=== PATIENT | male | born 1975 | race Caucasian/White ===

== ENCOUNTER → 2022-04-08 12:50 | Outpatient (BNVA) | payer SELFPAY | PROVIDERS: Family Provider Family Medicine; PCP Family Medicine; Visit Provider Family Medicine | DX: I63.9 Cerebral infarction, unspecified (principal); I10 Essential (primary) hypertension; E78.5 Hyperlipidemia, unspecified; F32.A Depression, unspecified | CPT/HCPCS: 80053; 80061; 84550 ==

== ENCOUNTER → 2022-05-27 11:17 | Outpatient (BNVA) | payer SELFPAY | PROVIDERS: Family Provider Family Medicine; PCP Family Medicine; Visit Provider Family Medicine | DX: R73.9 Hyperglycemia, unspecified (principal) | CPT/HCPCS: 83036 ==

== ENCOUNTER 2022-12-21 17:19 | Observation (INO) | payer MEDICAID, SELFPAY ==
[2022-12-21 17:27] VITALS: BP 133/97; PULSE 100; RESP 16; TEMP 36.8; O2SAT 96; BMI 34.0
[2022-12-21 18:34] LABS: Alanine Aminotransferase 39 U/L (0-41); Albumin Level 4.7 g/dL (3.5-5.2); Alkaline Phosphatase 92 U/L (40-130); Anion Gap 23.3 (5-19); Aspartate Amino Transferase 22 U/L (0-40); Blood Urea Nitrogen 20 mg/dL (6-20); Calcium 10.1 mg/dL (8.5-10.5); Carbon Dioxide 24 mmol/L (22-29); Chloride 81 mmol/L (98-107); Globulin 2.4 g/dL (1.3-4.6); Glomerular Filtration Rate 71.1 mL/min (90-130); Magnesium 2.3 mg/dL (1.7-2.3); Potassium 4.3 mmol/L (3.5-5.1); Sodium 124 mmol/L (136-145); Total Bilirubin 0.9 mg/dL (0.15-1.2); Total Protein 7.1 g/dL (6.6-8.7)
[2022-12-21 18:43] LABS: Osmolality Calculated 307 mOsm/kg (285-295)
[2022-12-21 18:54] LABS: Glucose 928 mg/dL (65-115)
[2022-12-21 19:15] LABS: Ketone (Acetest) Serum Negative (Negative)
--- NOTE | 2022-12-21 19:16 | W.ED.WEAKNES ---
HPI - Weakness General: Chief complaint: Weakness Stated complaint: weak, peeing alot, vision Time Seen by Provider: 12/21/22 19:05 Source: patient History of Present Illness: 47-year-old male with a history of hypertension. He presents with a 30 pound weight loss over the last couple of months. He has been urinating more frequently, thirsty all the time. He has been increasingly generally weak. He tried to mow his yard, and had to rest, and finally gave up. He felt like he needed to go to lay down after taking a shower today. He denies any fever. No vomiting or diarrhea. No history of diabetes. MD Complaint: generalized weakness Onset (ago): week(s) Duration: constant and progressively worsening Location: generalized Migration: none Severity: moderate Quality: other Relieving factors: none Associated symptoms: Reports decreased appetite and nausea; Denies chest pain, chills, diaphoresis, dysuria, fever(s), headache(s), short of breath, syncope or vomiting Review of Systems Const: Denies: fever(s), chills or diaphoresis ENMT: Denies: throat pain Card: Denies: chest pain or syncope Resp: Denies: dyspnea, productive cough or non-productive cough GI: Reports: nausea; Denies: abdominal pain or vomiting : Denies: dysuria Neuro: Denies: headache(s) Endo: Reports: polyuria, polydipsia and tired all the time Physical Exam Const: COMMON NORMALS: no acute distress GENERAL APPEARANCE: cooperative; not ill appearing and not frail appearing HENMT: COMMON NORMALS: normocephalic, atraumatic and Normal external nose present HEAD & SCALP: normocephalic and atraumatic FACE & SINUS: normal facial exam and face symmetric NOSE: Normal external nose present Eye: COMMON NORMALS: Equal, round and reactive pupils present and EOMs intact bilaterally PUPIL: Yes Equal, round and reactive pupils present Neck/C-Spine: GENERAL: Yes trachea midline Chest: CHEST: Yes Symmetrical chest wall rise Resp: COMMON NORMALS: normal respiratory effort, No retractions, No use of accessory muscles and clear to auscultation bilaterally AUSCULTATION: clear to auscultation bilaterally Cardio: COMMON NORMALS: regular rate and regular rhythm RATE: regular rate RHYTHM: regular rhythm GI: COMMON NORMALS: Normal to inspection, nondistended, normoactive bowel sounds present Extremity: COMMON NORMALS: no pedal edema Neuro: JAI COMA SCALE: document GCS findings Jai coma scale eye opening: Spontaneous Jai coma scale verbal response: Orientated [place] coma scale motor response: Obey commands Jai coma scale total score: 15 SENSORY EXAM: Yes extremities (intact) Psych: COMMON NORMALS: speech normal SPEECH: Yes normal speech Skin: COMMON NORMALS: no rashes or lesions noted GENERAL SKIN EXAM: no rashes or lesions noted Course Vital Signs: Vital signs: Vital Signs Temperature 98.3 F 12/21/22 17:27 Pulse Rate 100 12/21/22 17:27 Respiratory Rate 16 12/21/22 17:27 Blood Pressure 133/97 12/21/22 17:27 Pulse Oximetry 96 12/21/22 17:27 Oxygen Delivery Me thod Room Air 12/21/22 17:27 MDM - Weakness Medical Decision Making Patient with normal vital signs. Hemoglobin is 18. White blood cell count of 12. Blood sugar is 928, with pseudohyponatremia of 124. Bicarbonate level is 24. Venous blood gas shows a pH of 7.5. Urinalysis is negative save 1+ ketones and 4+ glucose. Serum ketones are negative. Lipase is 62. He was placed on insulin drip, 2 L bolus. Blood sugar is now 448 and following steadily. Since he is not acidotic, we will DC insulin drip when he transfers to the floor, for subcutaneous sliding scale insulin to help calculate insulin need for him. Spoke with hospitalist, will place in observation. Lab Data 12/21/22 19:09 12/21/22 18:06 Laboratory Results WBC 11.8 10^3/uL (4.0-10.0) H 12/21/22 19:09 Corrected WBC Cancelled 12/21/22 18:06 RBC 5.81 10^6/uL (4.1-5.3) H 12/21/22 19:09 Hgb 18.0 g/dL (11.7-16.6) H 12/21/22 19:09 Hct 48.4 % (42.0-52.0) 12/21/22 19:09 MCV 83.3 fl (80-94) 12/21/22 19:09 MCH 31.0 pg (28.0-34.0) 12/21/22 19:09 MCHC 37.2 g/dL (30.0-36.0) H 12/21/22 19:09 RDW 11.6 % (12.1-15.1) L 12/21/22 19:09 Plt Count 152 10^3/cmm (130-400) 12/21/22 19:09 MPV 9.0 fL (7.4-10.4) 12/21/22 19:09 Gran % Cancelled 12/21/22 18:06 Neut % (Auto) 71.3 % 12/21/22 19:09 Lymph % (Auto) 21.1 % 12/21/22 19:09 [place] % (Auto) 6.5 % 12/21/22 19:09 Eos % (Auto) 0.4 % 12/21/22 19:09 Baso % (Auto) 0.4 % 12/21/22 19:09 Neut # (Auto) 8.39 10^3/uL (1.8-7.7) H 12/21/22 19:09 Lymph # (Auto) 2.5 10^3/uL (0.8-4.8) 12/21/22 19:09 [place] # (Auto) 0.8 10^3/uL (0.2-0.9) 12/21/22 19:09 Eos # (Auto) 0.1 10^3/uL (0.0-0.8) 12/21/22 19:09 Baso # (Auto) 0.1 10^3/uL (0.0-0.1) 12/21/22 19:09 Absolute Gran (auto) Cancelled 12/21/22 18:06 Nucleated RBC % (auto) 0 % 12/21/22 19:09 Nucleated RBCs # 0.0 /100WBC 12/21/22 19:09 Specimen Type Venous 12/21/22 19:28 Sample Site Not specified 12/21/22 19:28 Star Test Pos 12/21/22 19:28 VBG pH 7.50 (7.32-7.42) H 12/21/22 19:28 VBG pCO2 34.8 mmHg (41-51) L 12/21/22 19:28 VBG pO2 60.6 mmHg (25-40) H 12/21/22 19:28 VBG HCO3 27.0 mmol/L (24-28) 12/21/22 19:28 VBG Base Excess 4.1 mmol/L (-3.0-3.0) H 12/21/22 19:28 VBG Hematocrit 56.1 % (42-52) H 12/21/22 19:28 O2 Delivery Device Room air 12/21/22 19:28 FiO2 21.0 % 12/21/22 19:28 Preparation Plant Repairer ID Arsalanro 12/21/22 19:28 Sodium 124 mmol/L (136-145) L 12/21/22 18:06 Potassium 4.3 mmol/L (3.5-5.1) 12/21/22 18:06 Chloride 81 mmol/L (98-107) L 12/21/22 18:06 Carbon Dioxide 24 mmol/L (22-29) 12/21/22 18:06 Anion Gap 23.3 (5-19) H 12/21/22 18:06 BUN 20 mg/dL (6-20) 12/21/22 18:06 Creatinine 1.1 mg/dL (0.7-1.2) 12/21/22 18:06 GFR Calculation 71.1 mL/min (90-130) L 12/21/22 18:06 Glucose 928 mg/dL (65-115) H* 12/21/22 18:06 POC Glucose > 600 mg/dL (70-110) H* 12/21/22 20:08 Calculated Osmolality 307 mOsm/kg (285-295) H 12/21/22 18:06 Calcium 10.1 mg/dL (8.5-10.5) 12/21/22 18:06 Magnesium 2.3 mg/dL (1.7-2.3) 12/21/22 18:06 Total Bilirubin 0.9 mg/dL (0.15-1.2) 12/21/22 18:06 AST 22 U/L (0-40) 12/21/22 18:06 ALT 39 U/L (0-41) 12/21/22 18:06 Alkaline Phosphatase 92 U/L (40-130) 12/21/22 18:06 Total Protein 7.1 g/dL (6.6-8.7) 12/21/22 18:06 Albumin 4.7 g/dL (3.5-5.2) 12/21/22 18:06 Globulin 2.4 g/dL (1.3-4.6) 12/21/22 18:06 Lipase 62 U/L (13-60) H 12/21/22 19:21 Urine Color Colorless (Yellow) 12/21/22 19:30 Urine Appearance Clear (CLEAR) 12/21/22 19:30 Urine pH 5 (5-7) 12/21/22 19:30 Ur Specific [place] 1.010 (1.005-1.030) 12/21/22 19:30 Urine Protein Neg (Negative) 12/21/22 19:30 Urine Glucose (UA) 4+ (Normal) H 12/21/22 19:30 Urine Ketones 1+ (Negative) H 12/21/22 19:30 Urine Blood Neg (Negative) 12/21/22 19:30 Urine Nitrate Negative (Negative) 12/21/22 19:30 Urine Bilirubin Neg (Negative) 12/21/22 19:30 Urine Urobilinogen Norm mg/dL (Negative) 12/21/22 19:30 Ur Leukocyte Esterase Negative (Negative) 12/21/22 19:30 Serum Ketones Negative (Negative) 12/21/22 18:06 Discharge Plan Discharge Patient Disposition: Placed in Observation Clinical Impression: Acute hyperglycemia Condition: Stable Prescriptions: No Action allopurinol 300 mg tablet See Rx Instructions .ROUTE .COMPLEX Qty: 90 3RF Dose Instruction: TAKE 1 TABLET BY MOUTH ONCE DAILY FOR GOUT Rx Instructions: TAKE 1 TABLET BY MOUTH ONCE DAILY FOR GOUT hydrochlorothiazide 25 mg tablet 25 mg PO DAILY Qty: 90 3RF Rx Instructions: Needs appt with physician simvastatin 80 mg tablet 80 mg PO DAILY Qty: 90 3RF Rx Instructions: Needs appt with physician hydrocodone-acetaminophen 5-325 mg tablet 1 tab PO BID PRN (Reason: pain/arthritis) 30 Days Qty: 30 0RF fluoxetine 20 mg capsule See Rx Instructions .ROUTE .COMPLEX Qty: 30 5RF Dose Instruction: Take 1 capsule by mouth once daily Rx Instructions: Take 1 capsule by mouth once daily lisinopril 30 mg tablet See Rx Instructions .ROUTE .COMPLEX Qty: 90 3RF Dose Instruction: TAKE 1 TABLET BY MOUTH ONCE DAILY . APPOINTMENT REQUIRED FOR FUTURE REFILLS Rx Instructions: TAKE 1 TABLET BY MOUTH ONCE DAILY . APPOINTMENT REQUIRED FOR FUTURE REFILLS Referrals: Raúl Hoffman DO [Primary Care Provider] - Coding Level of Care Code ED Natural Resource Manager for Colin Navarro
[2022-12-21 19:32] LABS: Base Excess VBG 4.1 mmol/L (-3.0-3.0); Blood Gas Allen Test Pos; Blood Gas Operator Identificat MONRO; Blood Gas Sample Site Not specified; Blood Gas Sample Type Venous; Oxygen Device ROOM AIR; PCO2 VBG 34.8 mmHg (41-51); PO2 VBG 60.6 mmHg (25-40); Venous Blood Gas Hematocrit 56.1 % (42-52)
[2022-12-21] MEDS: sodium chloride 0.9% 1,000 ML 999 ML IV ×2 (19:39→20:22)
[2022-12-21] MEDS: insulin regular-human 100 units/1 mL 16 UNIT IVP (19:39)
[2022-12-21 19:49] LABS: Add Urine Microscopic? NO; Charge for UA Resulting for Rev
[2022-12-21 19:52] LABS: Basophils # 0.1 10^3/uL (0.0-0.1); Basophils % 0.4 %; Eosinophils # 0.1 10^3/uL (0.0-0.8); Eosinophils % 0.4 %; Hematocrit 48.4 % (42.0-52.0); Lymphocytes # 2.5 10^3/uL (0.8-4.8); Lymphocytes % 21.1 %; Mean Corpuscular HGB Conc 37.2 g/dL (30.0-36.0); Mean Corpuscular Volume 83.3 fl (80-94); Monocytes # 0.8 10^3/uL (0.2-0.9); Monocytes % 6.5 %; Neutrophils # 8.39 10^3/uL (1.8-7.7); Neutrophils % 71.3 %; Nucleated Red Blood Cells % 0 %; Platelet Count 152 10^3/cmm (130-400); Red Blood Count 5.81 10^6/uL (4.1-5.3); Red Cell Distribution Width 11.6 % (12.1-15.1); White Blood Count 11.8 10^3/uL (4.0-10.0)
[2022-12-21 20:00] LABS: Bilirubin Urine Neg (Negative); Blood Urine Neg (Negative); Glucose Urine UA 4+ (Normal); Ketones Urine 1+ (Negative); Leukocyte Esterase Urine Negative (Negative); Nitrate Urine Negative (Negative); Protein Urine Neg (Negative); Urine Appearance Clear (CLEAR); Urine Color Colorless (Yellow); Urobilinogen Urine Norm (Negative); pH Urine 5 (5-7)
[2022-12-21 20:14] LABS: Lipase 62 U/L (13-60)
[2022-12-21] MEDS: insulin regular-human 250 UNIT in sodium chloride 0.9% 250 ML 26.26 UNIT IV (20:16)
[2022-12-21 20:17] LABS: Glucose Point of Care > 600 mg/dL (70-110)
--- NOTE | 2022-12-21 21:40 | PM.HP ---
Providers/Chief Complaint Primary Care Provider: Raúl Hoffman DO Chief Complaint: weak, peeing alot, vision History of Present Illness Rocco Flores is a 47 year old male with a past medical history significant for gout, hypertension, transient ischemic attack, and obesity who presents to the emergency department with generalized weakness x several months. Endorses associated unintentional weight loss, polyuria, polydipsia, and blurred vision. Denies a personal history of type 2 diabetes mellitus. Reports a family history of type 2 diabetes mellitus in his mother. In the ED, patient was found to have markedly elevated hyperglycemia with symptoms consistent with a newly diagnosed type 2 diabetes mellitus. Review of Systems Narrative: A complete review of systems was obtained and is negative except as stated in HPI. Medications/Allergies Home Medications Medication Instructions Recorded Confirmed Last Taken Type allopurinol 300 mg tablet See Rx Instructions .Route 04/09/22 Unknown Rx .COMPLEX #90 tabs hydrochlorothiazide 25 mg tablet 25 mg PO DAILY #90 tabs 04/12/22 Unknown Rx simvastatin 80 mg tablet 80 mg PO DAILY #90 tabs 04/12/22 Unknown Rx hydrocodone 5 mg-acetaminophen 325 1 tab PO BID PRN pain/arthritis 1 04/16/22 Unknown Rx mg tablet month #30 tabs fluoxetine 20 mg capsule See Rx Instructions .Route 08/12/22 Unknown Rx .COMPLEX #30 caps lisinopril 30 mg tablet See Rx Instructions .Route 08/12/22 Unknown Rx .COMPLEX #90 tabs Allergies Allergy/AdvReac Type Severity Reaction Status Date / Time No Known Allergies Allergy Verified 12/21/22 17:24 PFSH Acute PFSH: Medical History (Updated 12/22/22 @ 00:00 by Mariano Coles MD) Gout Hypertension Surgical History No pertinent past surgical history Family History Mother Diabetes Social History Smoking and tobacco status: never smoked Alcohol intake: current Substance/Drug Use: never Vitals/I&O/Wt Last Vital Signs Temp 98.3 F 12/21/22 17:27 Pulse 100 12/21/22 17:27 Resp 16 12/21/22 17:27 BP 133/97 12/21/22 17:27 Pulse Ox 96 12/21/22 17:27 O2 Del Method Room Air 12/21/22 17:27 12/21/22 12/21/22 12/21/22 06:59 14:59 22:59 Intake Total 715.95 / 715.95 Balance 715.95 / 715.95 Weight last 48 hrs Weight 104.326 kg Physical Exam Narrative: General: Patient is awake. Appears fatigued. Head: Normocephalic. Atraumatic. EOM intact. Dry mucous membranes. Neck: No JVD. Cardiovascular: RRR. No gallops. No murmurs. No peripheral edema. Lungs: Clear to auscultation, no use of accessory muscles, no crackles or wheezes. Skin: No jaundice. No rashes. Abdomen: Normal bowel sounds, abdomen soft and nontender. Genito Urinary: Genital exam not performed since complaints not related. Rectal: Rectal exam not performed since no symptoms indicated blood loss. Extremities: No cyanosis or clubbing. Musculoskeletal:No swollen or erythematous joints. Neurological: Moves all 4 extremities. No myoclonus. Data 12/21/22 19:09 12/21/22 18:06 A&P Assessment and plan (1) Hyperglycemia: Severe hyperglycemia consistent with newly diagnosed type 2 diabetes mellitus A1c ordered Started on insulin drip in ED Start Lantus SSI We will need additional diabetes education Will need supplies (2) Hypertension: Continue WILLARD inhibitor Continue HCTZ (3) Gout: Continue allopurinol (4) Depressed: Continue Prozac (5) Hyperlipemia: Continue statin Plan DVT prophylaxis: Low risk CODE STATUS: Full code Attestations Medical Necessity Statement*: Patient presents with severe symptomatic hyperglycemia consistent with newly diagnosed type 2 diabetes mellitus with expected hospitalization not to cross 2 midnights. Coding Level of Care Code Acute Code for g Fwd Diagnoses Hyperglycemia R73.9 Hypertension I10 Gout M10.9 Depressed F32.A Hyperlipemia E78.5
[2022-12-21 22:59] VITALS: BP 111/88; PULSE 82; RESP 16; O2SAT 94
[2022-12-21 22:59] LABS: Glucose Point of Care 448 mg/dL (70-110)
[2022-12-21 22:59] LABS: Glucose Point of Care 318 mg/dL (70-110)
--- NOTE | 2022-12-21 23:01 | PC.NURSE ---
Last blood sugar of [address] Stack. Insulin drip discontinued per doctor order.
[2022-12-22 00:02] VITALS: BP 134/86; PULSE 83; RESP 18; TEMP 36.8; O2SAT 92
[2022-12-22 00:44] LABS: Estmated Average Glucose 306; Hemoglobin A1C 12.3 % (4.0-6.0)
[2022-12-22] MEDS: insulin glargine 100 units/1 mL 10 UNIT SUBCUT (01:00)
[2022-12-22 04:00] VITALS: BP 127/77; PULSE 81; RESP 18; TEMP 36.8; O2SAT 95
[2022-12-22 04:05] LABS: Add RBC Morph Yes; Slide Review Slide Review Perform
[2022-12-22 04:09] LABS: Tear Drop Cells Trace
[2022-12-22 04:12] LABS: RBC Morph Comp No
[2022-12-22 06:42] LABS: Glucose Point of Care 366 mg/dL (70-110)
[2022-12-22 07:26] VITALS: BP 153/80; PULSE 78; RESP 15; TEMP 36.6; O2SAT 94
--- NOTE | 2022-12-22 09:08 | PC.PHAR ---
pt states he takes care of his own medications-ext shows fluoxetine 20mg daily last filled 10/20/22 30d/s pt states he hasnt taken in about 4 months but states he has about 3 months worth of fluoxetine built up-pt states he takes a daily aspirin pt states unsure if 81mg or 325mg states its just what you by otc-ext shows allopurinol 300mg daily filled 09/15/22 90d/s-fluoxetine 20mg daily filled 10/20/22 30d/s-hctz 25mg daily filled 09/15/22 90d/s-norco 5-325mg bid prn filled 04/21/22 30d/s-lisinopril 30mg daily filled 08/13/22 90d/s and zocor 80mg daily filled 09/23/22 90d/s-notes are made in the pharmacy comments
[2022-12-22 09:17] LABS: Basophils % 0.4 %; Eosinophils # 0.1 10^3/uL (0.0-0.8); Eosinophils % 1.2 %; Hematocrit 40.5 % (42.0-52.0); Hemoglobin 14.8 g/dL (11.7-16.6); Lymphocytes % 29.8 %; Mean Corpuscular HGB Conc 36.5 g/dL (30.0-36.0); Mean Corpuscular Hemoglobin 31.2 pg (28.0-34.0); Mean Corpuscular Volume 85.4 fl (80-94); Monocytes # 0.5 10^3/uL (0.2-0.9); Monocytes % 6.8 %; Neutrophils # 4.16 10^3/uL (1.8-7.7); Neutrophils % 61.5 %; Nucleated Red Blood Cells % 0 %; Platelet Count 100 10^3/cmm (130-400); Red Blood Count 4.74 10^6/uL (4.1-5.3); Red Cell Distribution Width 11.6 % (12.1-15.1); White Blood Count 6.8 10^3/uL (4.0-10.0)
[2022-12-22 09:44] LABS: Alanine Aminotransferase 31 U/L (0-41); Albumin Level 3.7 g/dL (3.5-5.2); Alkaline Phosphatase 70 U/L (40-130); Aspartate Amino Transferase 28 U/L (0-40); Blood Urea Nitrogen 19 mg/dL (6-20); Calcium 8.8 mg/dL (8.5-10.5); Carbon Dioxide 25 mmol/L (22-29); Chloride 94 mmol/L (98-107); Glomerular Filtration Rate 102.7 mL/min (90-130); Osmolality Calculated 303 mOsm/kg (285-295); Sodium 133 mmol/L (136-145); Total Bilirubin 0.4 mg/dL (0.15-1.2); Total Protein 5.7 g/dL (6.6-8.7)
[2022-12-22 09:55] LABS: Glucose 535 mg/dL (65-115)
[2022-12-22] MEDS: insulin lispro 100 unit/1 mL SUBCUT ×4 (10:36→21:20)
[2022-12-22] MEDS: insulin regular-human 15 UNIT in SYRINGE 1 EACH 10 UNIT IVP (10:36)
[2022-12-22] MEDS: allopurinol 300 mg Tablet PO (10:37)
[2022-12-22] MEDS: atorvastatin 40 mg Tablet PO (10:38)
[2022-12-22 11:06] LABS: Glucose Point of Care > 600 mg/dL (70-110)
--- NOTE | 2022-12-22 11:27 | P.PN_ITS ---
Subjective Subjective: Patient was given 15 units of IV insulin Given a bolus as well Blood sugar has been rising Anion gap closed Patient was educated on how to use use sliding scale moderate dose Lantus and use metformin Vitals/I&O/Wt Last Vital Signs Temp 97.8 F 12/22/22 07:26 Pulse 78 12/22/22 07:26 Resp 15 12/22/22 07:26 BP 153/80 12/22/22 07:26 Pulse Ox 94 12/22/22 07:26 O2 Del Method Room Air 12/22/22 07:26 12/21/22 12/22/22 12/22/22 22:59 06:59 14:59 Intake Total 747.024 / 646.062 5554 / 2227.024 360.15 / 360.15 Balance 747.024 / 733.143 4078 / 2227.024 360.15 / 360.15 Weight last 48 hrs Weight 104.326 kg Physical Exam Narrative: Awake and alert Euvolemic EOMI, PERRLA S1, S2 Morbidly obese GCS 15 Nonfocal neuro exam currently on room air Abdomen soft Data 12/22/22 08:43 12/22/22 08:43 A&P Assessment and plan (1) Gout: (2) Hypertension: (3) Hyperglycemia: (4) Acute hyperglycemia: (5) Depressed: (6) Hyperlipemia: Plan New diagnosis of diabetes Hemoglobin A1c is 12 Diabetic education done Spent a lot of time at the bedside Patient is still hyperglycemic Given IV fluid bolus and given IV regular insulin Anion gap is closed Patient was counseled for retinal exam and to see medical translator on annual basis Cessation of alcohol Continue aspirin Check cholesterol level Patient is still hyperglycemic he might not be able to go home today We will like to monitor his sugar and control it bring it below 180 Continue DVT prophylaxis Consistent carb diet Hypertensive: Adjust antihypertensive regimen Continue hydrochlorothiazide, lisinopril dose increased added amlodipine Moderate time spent at the bedside Patient had hemoglobin A1c of 6.6 in May and now it has worsened up to 12 is at the bedside he was counseled adverse I have showed them Google images to use moderate dose sliding scale and asked them to use [place] [employer] website Attestations Medical Necessity Statement*: 1 more day in the hospital is needed Diagnoses Gout M10.9 Hypertension I10 Hyperglycemia R73.9 Acute hyperglycemia R73.9 Depressed F32.A Hyperlipemia E78.5
[2022-12-22 11:36] VITALS: BP 148/88; PULSE 76; RESP 15; TEMP 36.7; O2SAT 95
[2022-12-22] MEDS: insulin glargine 100 units/1 mL 15 UNIT SUBCUT (11:57)
[2022-12-22] MEDS: lactated ringers 1,000 ML 999 ML IV ×2 (11:57→14:00)
[2022-12-22] MEDS: amlodipine 10 mg Tablet PO (11:57)
[2022-12-22 12:36] LABS: Glucose Point of Care 559 mg/dL (70-110)
[2022-12-22 15:38] VITALS: BP 163/90; PULSE 72; RESP 15; TEMP 36.6; O2SAT 95
[2022-12-22 16:56] LABS: Glucose Point of Care 288 mg/dL (70-110)
[2022-12-22 20:00] VITALS: BP 156/84; PULSE 78; RESP 18; TEMP 36.5; O2SAT 93
[2022-12-22 20:44] LABS: Glucose Point of Care 313 mg/dL (70-110)
[2022-12-22] MEDS: insulin glargine 100 units/1 mL 30 UNIT SUBCUT (21:21)
[2022-12-22 23:22] LABS: Glucose Point of Care 194 mg/dL (70-110)
[2022-12-23] VITALS: BP 148/88; PULSE 68; RESP 17; TEMP 37.1; O2SAT 97
[2022-12-23 03:08] LABS: Glucose Point of Care 174 mg/dL (70-110)
[2022-12-23 04:00] VITALS: BP 145/82; PULSE 67; RESP 18; TEMP 36.4; O2SAT 97
[2022-12-23 05:23] LABS: Anion Gap 14.3 (5-19); Blood Urea Nitrogen 13 mg/dL (6-20); Calcium 8.7 mg/dL (8.5-10.5); Carbon Dioxide 25 mmol/L (22-29); Chloride 104 mmol/L (98-107); Creatinine Clr Calc Pharmacy 151.9382; Glomerular Filtration Rate 119.9 mL/min (90-130); Glucose 223 mg/dL (65-115); Osmolality Calculated 297 mOsm/kg (285-295); Potassium 3.3 mmol/L (3.5-5.1); Sodium 140 mmol/L (136-145)
[2022-12-23 06:50] LABS: Glucose Point of Care 274 mg/dL (70-110)
[2022-12-23 07:26] VITALS: BP 151/95; PULSE 78; RESP 16; TEMP 36.4; O2SAT 95
[2022-12-23] MEDS: insulin lispro 100 unit/1 mL SUBCUT ×2 (08:25→13:02)
[2022-12-23] MEDS: amlodipine 10 mg Tablet PO (08:26)
[2022-12-23] MEDS: lisinopril 20 mg Tablet 40 MG PO (08:26)
[2022-12-23] MEDS: atorvastatin 40 mg Tablet PO (08:26)
[2022-12-23] MEDS: allopurinol 300 mg Tablet PO (08:28)
--- NOTE | 2022-12-23 10:05 | P.DS_ITS ---
Discharge Providers Date of Admission: 12/21/22 22:50 Date of Discharge: December 23, 2022 Attending Provider at Admission: Mariano Coles MD Attending Provider at Discharge: Elen Ny MD Primary Care Provider: Raúl Hoffman DO Diagnoses at Discharge Discharge Diagnosis (1) Gout: Status: Acute (2) Hypertension: Status: Acute (3) Hyperglycemia: Status: Acute (4) Acute hyperglycemia: Status: Acute (5) Depressed: Status: Acute (6) Hyperlipemia: Status: Acute Reason for Visit Reason for Visit: weak, peeing alot, vision Hospital Course Hospital Course 47-year-old male who was admitted for polydipsia polyuria and fatigue unint entional weight loss, patient was diagnosed with new onset diabetes type 2, hemoglobin A1c is 12 however in May it was 6.6 he was not put on any metformin Patient was hypertensive and hyperglycemic he was managed on medical floor with insulin sliding scale, Lantus 15 units which I increased to 30 units because of his persistent hyperglycemia A lot of time spent at the bedside and education of diabetes how to take Lantus and what is the goal fasting blood sugar level, how to increase Lantus, how to take sliding scale moderate dose was also educated at the bedside Patient was asked to go for annual retinal and foot exam Patient is hypertensive, morbidly obese 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 Hewitt I will add lisinopril, amlodipine avoid hydrochlorothiazide that can cause hyperglycemia, add statins continue allopurinol and antidepressants Physical Exam Narrative: Awake and alert GCS 15 Nonfocal neuro exam Currently on room air Family at the bedside GCS 15 Pleasant and cooperative Discharge Data Studies Completed and Pending Laboratory Results WBC 6.8 10^3/uL (4.0-10.0) 12/22/22 08:43 Corrected WBC Cancelled 12/21/22 18:06 RBC 4.74 10^6/uL (4.1-5.3) 12/22/22 08:43 Hgb 14.8 g/dL (11.7-16.6) 12/22/22 08:43 Hct 40.5 % (42.0-52.0) L 12/22/22 08:43 MCV 85.4 fl (80-94) 12/22/22 08:43 MCH 31.2 pg (28.0-34.0) 12/22/22 08:43 MCHC 36.5 g/dL (30.0-36.0) H 12/22/22 08:43 RDW 11.6 % (12.1-15.1) L 12/22/22 08:43 Plt Count 100 10^3/cmm (130-400) L D 12/22/22 08:43 MPV 12.0 fL (7.4-10.4) H 12/22/22 08:43 Gran % Cancelled 12/21/22 18:06 Neut % (Auto) 61.5 % 12/22/22 08:43 Lymph % (Auto) 29.8 % 12/22/22 08:43 [place] % (Auto) 6.8 % 12/22/22 08:43 Eos % (Auto) 1.2 % 12/22/22 08:43 Baso % (Auto) 0.4 % 12/22/22 08:43 Neut # (Auto) 4.16 10^3/uL (1.8-7.7) 12/22/22 08:43 Lymph # (Auto) 2.0 10^3/uL (0.8-4.8) 12/22/22 08:43 [place] # (Auto) 0.5 10^3/uL (0.2-0.9) 12/22/22 08:43 Eos # (Auto) 0.1 10^3/uL (0.0-0.8) 12/22/22 08:43 Baso # (Auto) 0.0 10^3/uL (0.0-0.1) 12/22/22 08:43 Absolute Gran (auto) Cancelled 12/21/22 18:06 Nucleated RBC % (auto) 0 % 12/22/22 08:43 Nucleated RBCs # 0.0 /100WBC 12/22/22 08:43 Tear Drop Cells Trace 12/21/22 19:09 Specimen Type Venous 12/21/22 19:28 Sample Site Not specified 12/21/22 19:28 Star Test Pos 12/21/22 19:28 VBG pH 7.50 (7.32-7.42) H 12/21/22 19:28 VBG pCO2 34.8 mmHg (41-51) L 12/21/22 19:28 VBG pO2 60.6 mmHg (25-40) H 12/21/22 19:28 VBG HCO3 27.0 mmol/L (24-28) 12/21/22 19:28 VBG Base Excess 4.1 mmol/L (-3.0-3.0) H 12/21/22 19:28 VBG Hematocrit 56.1 % (42-52) H 12/21/22 19:28 O2 Delivery Device Room air 12/21/22 19:28 FiO2 21.0 % 12/21/22 19:28 Hazardous Materials Handler ID Monro 12/21/22 19:28 Sodium 140 mmol/L (136-145) 12/23/22 04:45 Potassium 3.3 mmol/L (3.5-5.1) L 12/23/22 04:45 Chloride 104 mmol/L (98-107) 12/23/22 04:45 Carbon Dioxide 25 mmol/L (22-29) 12/23/22 04:45 Anion Gap 14.3 (5-19) 12/23/22 04:45 BUN 13 mg/dL (6-20) 12/23/22 04:45 Creatinine 0.7 mg/dL (0.7-1.2) 12/23/22 04:45 GFR Calculation 119.9 mL/min (90-130) 12/23/22 04:45 Glucose 223 mg/dL (65-115) H 12/23/22 04:45 POC Glucose 274 mg/dL (70-110) H 12/23/22 06:35 Estimat Average Glucose 306 12/21/22 19:09 Hemoglobin A1c 12.3 % (4.0-6.0) H 12/21/22 19:09 Calculated Osmolality 297 mOsm/kg (285-295) H 12/23/22 04:45 Calcium 8.7 mg/dL (8.5-10.5) 12/23/22 04:45 Magnesium 2.3 mg/dL (1.7-2.3) 12/21/22 18:06 Total Bilirubin 0.4 mg/dL (0.15-1.2) 12/22/22 08:43 AST 28 U/L (0-40) 12/22/22 08:43 ALT 31 U/L (0-41) 12/22/22 08:43 Alkaline Phosphatase 70 U/L (40-130) 12/22/22 08:43 Total Protein 5.7 g/dL (6.6-8.7) L 12/22/22 08:43 Albumin 3.7 g/dL (3.5-5.2) 12/22/22 08:43 Globulin 2.0 g/dL (1.3-4.6) 12/22/22 08:43 Lipase 62 U/L (13-60) H 12/21/22 19:21 Urine Color Colorless (Yellow) 12/21/22 19:30 Urine Appearance Clear (CLEAR) 12/21/22 19:30 Urine pH 5 (5-7) 12/21/22 19:30 Ur Specific [place] 1.010 (1.005-1.030) 12/21/22 19:30 Urine Protein Neg (Negative) 12/21/22 19:30 Urine Glucose (UA) 4+ (Normal) H 12/21/22 19:30 Urine Ketones 1+ (Negative) H 12/21/22 19:30 Urine Blood Neg (Negative) 12/21/22 19:30 Urine Nitrate Negative (Negative) 12/21/22 19:30 Urine Bilirubin Neg (Negative) 12/21/22 19:30 Urine Urobilinogen Norm mg/dL (Negative) 12/21/22 19:30 Ur Leukocyte Esterase Negative (Negative) 12/21/22 19:30 Serum Ketones Negative (Negative) 12/21/22 18:06 Vitals Last Vital Signs Temp 97.6 F 12/23/22 07:26 Pulse 78 12/23/22 07:26 Resp 16 12/23/22 07:26 BP 151/95 12/23/22 07:26 Pulse Ox 95 12/23/22 07:26 O2 Del Method Room Air 12/23/22 07:26 Discharge Plan Discharge Patient Disposition: Home Condition: Stable Prescriptions: New amlodipine 10 mg Tablet 10 mg PO DAILY Qty: 90 3RF insulin glargine [Lantus Solostar U-100 Insulin] 100 unit/mL (3 mL) insulin pen 30 unit SUBCUT QPM Qty: 15 8RF metformin 500 mg tablet 500 mg PO BID Qty: 120 3RF lisinopril 20 mg Tablet 40 mg PO DAILY Qty: 90 3RF Humalog KwikPen Insulin 200 unit/mL (3 mL) insulin pen See Rx Instructions .ROUTE .COMPLEX Qty: 6 12RF Rx Instructions: Moderate intensity sliding scale max dose 20 units Continued simvastatin 80 mg tablet 80 mg PO DAILY Qty: 90 3RF Rx Instructions: Needs appt with physician hydrocodone-acetaminophen 5-325 mg tablet 1 tab PO BID PRN (Reason: pain/arthritis) 30 Days Qty: 30 0RF Aspir-81 81 mg Tablet,Delayed Release (Dr/Ec) 81 mg PO DAILY allopurinol 300 mg tablet 300 mg PO DAILY fluoxetine 20 mg capsule 20 mg PO DAILY PRN (Reason: Anxiety) Discontinued hydrochlorothiazide 25 mg tablet 25 mg PO DAILY Qty: 90 3RF Rx Instructions: Needs appt with physician lisinopril 30 mg tablet 30 mg PO DAILY Discharge Orders: Discharge Order (Routine); Ordered 12/23/22 Ordered By: Elen Ny Referrals: Raúl Hoffman DO [Primary Care Provider] - Endy Hewitt MD [Physician] - 7-10 days Donell Lozada [Physician] - 1 month Discharge Diet: Diabetic Patient Instructions: Opioid Safety Activity Restrictions/Additional Instructions: Take Lantus 30 units every night Watch her fasting glucose for 3 days and if it stays consistently above 130 mg/dL in fasting you can increase Lantus by 2 units and then monitor your blood sugar for next 3 days before changing Lantus dose If your fasting blood sugar is below 90 you need to cut back by 2 to 3 units of Lantus Take moderate intensity sliding scale as I discussed with you For your blood pressure I have discontinued hydrochlorothiazide please take lisinopril high-dose and amlodipine for now Please schedule appointment for your retinal exam and see a residential nurse on annual basis Discharge Attestations Time Spent in Discharge Care*: greater than 30 min Quality Metrics Clinical Quality Measures [ No reported AMI, CVA or VTE this stay] Coding Level of Care Code Acute Code for Chg Fwd Diagnoses Gout M10.9 Hypertension I10 Hyperglycemia R73.9 Acute hyperglycemia R73.9 Depressed F32.A Hyperlipemia E78.5
[2022-12-23] MEDS: potassium chloride ER 20 mEq Tablet 40 MEQ PO (10:43)
[2022-12-23 10:52] LABS: Glucose Point of Care 330 mg/dL (70-110)
[2022-12-23 11:04] VITALS: BP 143/88; PULSE 79; RESP 16; TEMP 36.6; O2SAT 95
== END 2022-12-23 13:15 | disposition home or self-care (01) ==
LOC: ER 21:55 → MEDSURG 22:50
PROVIDERS: Emergency Medicine; Admitting Provider Internal Medicine; Emergency Provider Emergency Medicine; PCP Family Medicine; Visit Provider Internal Medicine
DX: E11.65 Type 2 diabetes mellitus with hyperglycemia (principal); I10 Essential (primary) hypertension; E66.01 Morbid (severe) obesity due to excess calories; Z68.34 Body mass index [BMI] 34.0-34.9, adult; F32.A Depression, unspecified; M10.9 Gout, unspecified; E78.5 Hyperlipidemia, unspecified
CPT/HCPCS: 36415; 36416; 36600; 80048; 80053; 81003; 82009; 82803; 82962; 83036; 83690; 83735; 85025; 96361; 96365; 96372; 96375; 96376; 99285; G0378; J1815; J7030; J7050; J7120

== ENCOUNTER → 2023-02-03 10:58 | Outpatient (BNVA) | payer MEDICAID, SELFPAY | PROVIDERS: PCP Family Medicine; Visit Provider Family Medicine | DX: Z01.89 Encounter for other specified special examinations (principal) ==

== ENCOUNTER → 2023-04-09 09:38 | Outpatient (BNVA) | payer MEDICAID, SELFPAY | PROVIDERS: PCP Family Medicine; Visit Provider Family Medicine | DX: E11.9 Type 2 diabetes mellitus without complications (principal); E78.5 Hyperlipidemia, unspecified; I63.9 Cerebral infarction, unspecified; Z13.6 Encounter for screening for cardiovascular disorders | CPT/HCPCS: 80053; 80061; 83036 ==

== ENCOUNTER 2023-06-22 12:31 | Outpatient (CLI) | payer MEDICAID, SELFPAY ==
[2023-06-22 13:39] LABS: Alanine Aminotransferase 56 U/L (0-41); Albumin Level 4.4 g/dL (3.5-5.2); Alkaline Phosphatase 69 U/L (40-130); Anion Gap 15.6 (5-19); Aspartate Amino Transferase 38 U/L (0-40); Blood Urea Nitrogen 12 mg/dL (6-20); Calcium 9.5 mg/dL (8.5-10.5); Carbon Dioxide 25 mmol/L (22-29); Chloride 102 mmol/L (98-107); Chol HDL Ratio 3.73 mg/dL (1.0-5.00); Cholesterol 138 mg/dL (0-200); Globulin 3.3 g/dL (1.3-4.6); Glomerular Filtration Rate 102.7 mL/min (90-130); Glucose 122 mg/dL (65-115); HDL Cholesterol 37 mg/dL (60-100); LDL Cholesterol Calculated 79 mg/dL (50-129); LDL HDL Ratio 2.14 RATIO (0.00-3.22); Osmolality Calculated 289 mOsm/kg (285-295); Potassium 3.6 mmol/L (3.5-5.1); Sodium 139 mmol/L (136-145); Total Bilirubin 0.5 mg/dL (0.15-1.2); Total Protein 7.7 g/dL (6.6-8.7); Triglycerides 108 mg/dL (0-150)
[2023-06-22 13:45] LABS: Creatinine Urine, Random 210 mg/dL (39-259); Microalbumin Random Urine 9 ug/dL (0-20)
[2023-06-22 13:48] LABS: Microalbum Creatinine Ratio Ur 43 mg/dL (0-20)
[2023-06-22 13:48] LABS: Estmated Average Glucose 128; Hemoglobin A1C 6.1 % (4.0-6.0)
[2023-06-25 02:13] LABS: C-Peptide 5.58 ng/mL (0.80-3.85)
[2023-07-09 19:35] LABS: GAD 65 IA-2 Antibody <5.4 U/mL (<5.4); GAD Insulin Autoantibody <0.4 U/mL (<0.4); Glutamic Acid Decarboxylase 65 <5 IU/mL (<5)
== END 2023-06-22 12:32 | disposition home or self-care (01) ==
LOC: LAB 12:32
PROVIDERS: PCP Family Medicine; Visit Provider Internal Medicine
DX: E78.5 Hyperlipidemia, unspecified (principal); E11.9 Type 2 diabetes mellitus without complications
CPT/HCPCS: 80053; 80061; 82044; 83036; 84681; 86337; 86341

== ENCOUNTER 2024-04-04 12:54 | Outpatient (CLI) | payer OTHER, SELFPAY ==
[2024-04-04 14:08] LABS: Estmated Average Glucose 111; Hemoglobin A1C 5.5 % (4.0-6.0)
[2024-04-04 14:18] LABS: Creatinine Urine, Random 224 mg/dL (39-259); Microalbum Creatinine Ratio Ur 9 mg/dL (0-20); Microalbumin Random Urine 2 ug/dL (0-20)
[2024-04-04 14:19] LABS: Alanine Aminotransferase 35 U/L (0-41); Albumin Level 4.2 g/dL (3.5-5.2); Alkaline Phosphatase 41 U/L (40-130); Anion Gap 13.7 (5-19); Aspartate Amino Transferase 24 U/L (0-40); Blood Urea Nitrogen 15 mg/dL (6-20); Calcium 8.6 mg/dL (8.5-10.5); Carbon Dioxide 27 mmol/L (22-29); Chloride 102 mmol/L (98-107); Chol HDL Ratio 3.66 mg/dL (1.0-5.00); Cholesterol 139 mg/dL (0-200); Globulin 2.4 g/dL (1.3-4.6); Glomerular Filtration Rate 119.4 mL/min (90-130); Glucose 109 mg/dL (65-115); HDL Cholesterol 38 mg/dL (60-100); LDL Cholesterol Calculated 71 mg/dL (50-129); LDL HDL Ratio 1.87 RATIO (0.00-3.22); Osmolality Calculated 289 mOsm/kg (285-295); Potassium 3.7 mmol/L (3.5-5.1); Sodium 139 mmol/L (136-145); Total Bilirubin 0.3 mg/dL (0.15-1.2); Total Protein 6.6 g/dL (6.6-8.7); Triglycerides 148 mg/dL (0-150)
== END 2024-04-04 12:55 | disposition home or self-care (01) ==
LOC: LAB 12:58
PROVIDERS: PCP Family Medicine; Visit Provider Internal Medicine
DX: E11.9 Type 2 diabetes mellitus without complications (principal); E78.5 Hyperlipidemia, unspecified
CPT/HCPCS: 36415; 80053; 80061; 82044; 83036

== ENCOUNTER → 2024-09-27 08:32 | Outpatient (BNVA) | payer OTHER, SELFPAY | PROVIDERS: PCP Family Medicine; Visit Provider Family Medicine | DX: I10 Essential (primary) hypertension (principal); E78.5 Hyperlipidemia, unspecified; E11.9 Type 2 diabetes mellitus without complications; I63.9 Cerebral infarction, unspecified; M19.90 Unspecified osteoarthritis, unspecified site | CPT/HCPCS: 80053; 80061; 82607; 83036; 84550; 85025 ==